=== PATIENT | male | born 1990 | race Caucasian/White ===

== ENCOUNTER 2017-04-01 05:25 | Emergency (ER) | payer OTHER ==
[2017-04-01] MEDS ORDERED: LORazepam 2 MG/ML INJ IVP ONE (05:32)
[2017-04-01] MEDS ORDERED: LORazepam 2 MG/ML INJ ONE (05:33)
[2017-04-01 05:42] VITALS: TEMP 99.5; O2SAT 96
[2017-04-01] MEDS ORDERED: NS 1,000 ML IV ONE (05:42)
[2017-04-01] MEDS ORDERED: CHLORDIAZEPOXIDE 25MG PREPK#6 BTL TAKEHOME ONE ×2 (05:43→07:55)
--- NOTE | 2017-04-01 05:43 | EDPHY ---
H & P Time Seen by Provider: 04/01/17 05:36 HPI/ROS: Chief Complaint: Alcohol withdrawal HPI: 26-year-old male [facility] with symptoms of alcohol withdrawal. Patient states that he has been on a Lucia lately, drinking at least a 5th of whiskey a day. Last drink was about an hour and half ago. He has never had an alcohol withdrawal seizure or symptoms like this in the past. No fevers or chills. No abdominal pain. Has vomited once. Has not had any falls. Did not his head. No headache. Has been awake alert and cooperative per EMS. ROS: 10 point Review of Systems is negative except as noted in the HPI. PMH: None Medications: None Allergies: No known drug allergies Social History: Occasional smoking, heavy alcohol, occasional marijuana Family History: non-contributory Physical Exam: Gen: Awake, Alert, tremulous HEENT: Nose: no rhinorrhea Eyes: PERRLA, EOMI Mouth: Moist mucosa Neck: Supple, no JVD Chest: nontender, lungs clear to auscultation Heart: S1, S2 normal, no murmur Abd: Soft, non-tender, no guarding Back: no CVA tenderness, no midline tenderness Ext: no edema, non-tender Skin: no rash Neuro: CN II-XII intact, Sensation grossly intact, Strength 5/5 in bilateral upper and lower extremities Constitutional: Initial Vital Signs Temperature (C) 37.5 C 04/01/17 05:40 Heart Rate 93 04/01/17 05:40 Respiratory Rate 20 04/01/17 05:40 Blood Pressure 173/103 H 04/01/17 05:40 O2 Sat (%) 96 04/01/17 05:40 O2 Delivery Mode Room Air Allergies/Adverse Reactions: No Known Allergies Allergy (Unverified 04/01/17 05:41) Home Medications: Medication Instructions Recorded NK [No Known Home Meds] 04/01/17 Medical Decision Making ED Course/Re-evaluation: Patient is improved after Ativan. He is resting comfortably. He is not tachycardic. He is not tremulous. He is medically cleared for the [facility]. - Data Points Medications Given: Discontinued Medications Sodium Chloride (Ns) 1,000 mls @ 0 mls/hr IV ONCE ONE PRN Reason: Wide Open Stop: 04/01/17 05:43 Last Admin: 04/01/17 05:46 Dose: 1,000 mls Lorazepam (Ativan Injection) 2 mg IVP EDNOW ONE Stop: 04/01/17 05:33 Last Admin: 04/01/17 05:35 Dose: 2 mg Departure - Departure Disposition: Home, Routine, Self-Care Clinical Impression: Alcohol withdrawal Condition: Good Instructions: Chlordiazepoxide (By mouth), Alcohol Withdrawal (ED) Additional Instructions: Please continue to seek help to decrease your alcohol consumption. Return to the emergency depart for increasing tremors, seizure, uncontrolled nausea vomiting, or any other concerns. Referrals: Fredy Ramon MD [Medical Doctor] - As per Instructions
[2017-04-01] MEDS ORDERED: IBUPROFEN 600 MG TAB PO ONE (07:52)
[2017-04-01 08:01] VITALS: BP 144/98; PULSE 97; RESP 18
[2017-04-01] MEDS ORDERED: LORazepam 1 MG TAB PO ONE (08:08)
== END 2017-04-01 08:57 | disposition home or self-care (01) ==
DX: F10.239 Alcohol dependence with withdrawal, unspecified (principal); F17.200 Nicotine dependence, unspecified, uncomplicated; R11.10 Vomiting, unspecified
CPT/HCPCS: 96374; J2060

== ENCOUNTER 2017-04-21 12:53 | Inpatient (IN) | payer OTHER ==
--- NOTE | 2017-04-21 13:16 | EDPHY ---
H & P Time Seen by Provider: 04/21/17 12:54 HPI/ROS: Chief complaint. Manic HPI. 26-year-old male here by EMS after being found to be behaving erratically. The patient tells me he was in the park and having a tongue tug of war Mario with his brother. He looked down and saw small [employer] men walking in the grass and they were testing a plant that was also found in the park and it was found to be the lethal type of poison oak. He felt he needed medical attention so asked a family member to drive him to the [facility]. The family member already had a stalk growing out of his chest. Patient arrived at the [facility] and because of the above story and a retic behavior EMS was called. He was transported to [facility] by EMS. Patient denies drugs alcohol. He denies injury. He denies illness. He denies difficulty breathing, chest discomfort abdominal pain. There is apparently no history of mental health problems for this patient ROS Constitutional. no fever/chills, no weakness Eyes. no problems with vision ENT. no sore throat, no nasal drainage Cardiovascular. no chest pain Respiratory. no shortness of breath, no cough Abdominal. no abdominal pain, no nausea/vomiting, no diarrhea . no problems urinating MS. no calf pain/swelling, no neck/back pain, no joint pain Skin. no rash Lymph. no swollen glands Neuro. no headache, no dizziness, no difficulty walking or with speech. Erratically behavior Past Medical/Surgical History: Past medical history alcoholism. Apparently no mental health issues Social History: Single, daily smoker, no recent alcohol or drugs Smoking Status: Current some day smoker Physical Exam: General Appearance: Alert well-developed male mild distress. Vital signs stable Eyes: Pupils equal and round no pallor or injection. ENT, Mouth: Mucous membranes are moist. Respiratory: There are no retractions, lungs are clear to auscultation. Cardiovascular: Regular rate and rhythm. Gastrointestinal: Abdomen is soft and nontender, no masses, bowel sounds normal. Neurological: Awake and alert, sensory and motor exams grossly normal. Skin: Warm and dry, no rashes. Musculoskeletal: Neck is supple nontender. Extremities symmetrical, full range of motion. Psychiatric: Patient is oriented X 3, there is no agitation. Constitutional: Initial Vital Signs Temperature (C) 36.9 C 04/21/17 12:53 Heart Rate 92 04/21/17 12:53 Respiratory Rate 16 04/21/17 12:53 Blood Pressure 150/99 H 04/21/17 12:53 O2 Sat (%) 97 04/21/17 12:53 O2 Delivery Mode Room Air Allergies/Adverse Reactions: No Known Allergies Allergy (Verified 04/21/17 13:46) Home Medications: Medication Instructions Recorded NK [No Known Home Meds] 04/01/17 Medical Decision Making Procedures: Patient is placed on a detained ED Course/Re-evaluation: Patient is given Ativan orally for agitation 5:10 p.m. the patient has been evaluated by mental health. They obtained a history of dextromethorphan use. They request that the patient be admitted medically as they feel that this is a delirium presentation or substance abuse as opposed to mental health issue Patient remained stable I consulted and discussed case with Dr. Lei, hospitalist, who agrees to the admission Differential Diagnosis: I considered schizophrenia and bipolar as initial presentation, substance ingestion or withdrawal. Patient's symptoms are waxing and waning that would be consistent with delirium and likely ingestion - Data Points Laboratory Results: Laboratory Results 04/21/17 13:28 04/21/17 13:28 04/21/17 04/21/17 04/21/17 13:28 13:28 13:10 WBC 10.90 10^3/uL H 10^3/uL (3.80-9.50) RBC 4.48 10^6/uL 10^6/uL (4.40-6.38) Hgb 14.5 g/dL g/dL (13.7-17.5) Hct 42.5 % % (40.0-51.0) MCV 94.9 fL fL (81.5-99.8) MCH 32.4 pg pg (27.9-34.1) MCHC 34.1 g/dL g/dL (32.4-36.7) RDW 12.5 % % (11.5-15.2) Plt Count 105 10^3/uL L 10^3/uL (150-400) MPV 11.3 fL fL (8.7-11.7) Neut % (Auto) 77.9 % H % (39.3-74.2) Lymph % (Auto) 7.5 % L % (15.0-45.0) Maries % (Auto) 13.5 % H % (4.5-13.0) Eos % (Auto) 0.1 % L % (0.6-7.6) Baso % (Auto) 0.4 % % (0.3-1.7) Nucleat RBC Rel Count 0.0 % % (0.0-0.2) Absolute Neuts (auto) 8.50 10^3/uL H 10^3/uL (1.70-6.50) Absolute Lymphs (auto) 0.82 10^3/uL L 10^3/uL (1.00-3.00) Absolute Monos (auto) 1.47 10^3/uL H 10^3/uL (0.30-0.80) Absolute Eos (auto) 0.01 10^3/uL L 10^3/uL (0.03-0.40) Absolute Basos (auto) 0.04 10^3/uL 10^3/uL (0.02-0.10) Absolute Nucleated RBC 0.00 10^3/uL 10^3/uL (0-0.01) Immature Gran % 0.6 % % (0.0-1.1) Immature Gran # 0.06 10^3/uL 10^3/uL (0.00-0.10) Sodium 136 mEq/L mEq/L (134-144) Potassium 3.5 mEq/L mEq/L (3.5-5.2) Chloride 93 mEq/L L mEq/L (97-110) Carbon Dioxide 16 mEq/l L mEq/l (22-31) Anion Gap 27 mEq/L H mEq/L (8-16) BUN 15 mg/dL mg/dL (7-23) Creatinine 0.6 mg/dL L mg/dL (0.7-1.3) Estimated GFR > 60 Glucose 53 mg/dL L mg/dL (70-100) Calcium 10.2 mg/dL mg/dL (8.5-10.4) Urine Opiates Screen NEGATIVE (NEGATIVE) Acetaminophen < 10 mcg/mL L mcg/mL (10.0-30.0) Urine Barbiturates NEGATIVE (NEGATIVE) Ur Phencyclidine Scrn NEGATIVE (NEGATIVE) Ur Amphetamine Screen NEGATIVE (NEGATIVE) U Benzodiazepines Scrn NON-NEGATIVE H (NEGATIVE) Urine Cocaine Screen NEGATIVE (NEGATIVE) U Marijuana (THC) Screen NON-NEGATIVE H (NEGATIVE) Ethyl Alcohol < 10 mg/dL mg/dL (0-10) Medications Given: Discontinued Medications Lorazepam (Ativan) 1 mg PO EDNOW ONE Stop: 04/21/17 16:17 Last Admin: 04/21/17 16:19 Dose: 1 mg Departure - Departure Disposition: [facility] Clinical Impression: Delirium Condition: Fair
[2017-04-21 14:06] LABS: % IMMATURE GRANULYOCYTES 0.6 % (0.0-1.1); ABSOLUTE IMMATURE GRANULOCYTES 0.06 10^3/uL (0.00-0.10); ADD DIFF? NO; ADD MORPH? NO; ADD SCAN? NO; ATYPICAL LYMPHOCYTE FLAG 20 (0-99); FRAGMENT RBC FLAG 0 (0-99); HEMATOCRIT 42.5 % (40.0-51.0); HEMOGLOBIN 14.5 g/dL (13.7-17.5); LEFT SHIFT FLG 0 (0-99); LIPEMIA HEMOLYSIS FLAG 90 (0-99); MEAN CELL HEMOGLOBIN 32.4 pg (27.9-34.1); MEAN CELL HEMOGLOBIN CONCENTR. 34.1 g/dL (32.4-36.7); MEAN CELL VOLUME 94.9 fL (81.5-99.8); MEAN PLATELET VOLUME 11.3 fL (8.7-11.7); PLATELET CLUMPS FLAG 0 (0-99); PLATELET COUNT 105 10^3/uL (150-400); RED BLOOD CELL COUNT 4.48 10^6/uL (4.40-6.38); RED CELL DISTRIBUTION WIDTH 12.5 % (11.5-15.2)
[2017-04-21 14:20] LABS: ANION GAP 27 mEq/L (8-16); CALCIUM 10.2 mg/dL (8.5-10.4); CARBON DIOXIDE 16 mEq/l (22-31); CHLORIDE 93 mEq/L (97-110); CREATININE 0.6 mg/dL (0.7-1.3); ETHANOL SERUM < 10 mg/dL (0-10); GLOMERULAR FILTRATION RATE > 60; GLUCOSE 53 mg/dL (70-100); POTASSIUM 3.5 mEq/L (3.5-5.2); SODIUM 136 mEq/L (134-144)
[2017-04-21] MEDS ORDERED: LORazepam 1 MG TAB PO ONE ×2 (16:16→19:40)
[2017-04-21] MEDS ORDERED: LORazepam 1 MG TAB ONE (19:38)
[2017-04-21] MEDS ORDERED: ONDANSETRON 4 MG/2 ML VIAL IVP PRN (20:04)
[2017-04-21] MEDS ORDERED: ZOLPIDEM TARTRATE 5 MG TAB PO PRN (20:04)
[2017-04-21] MEDS ORDERED: ACETAMINOPHEN 325 MG TAB PO PRN (20:04)
[2017-04-21] MEDS ORDERED: NS 1,000 ML IV SCH (20:15)
--- NOTE | 2017-04-21 20:15 | PDGENHP ---
History and Physical History and Physical: HISTORY: This patient is brought into the ER with confusion and delusional thoughts odd behaviors. The patient tells me in the ER staff that today he was at a park here [place] when he and some relatives and other people in countered a poisonous [place] plans of some type which was causing people to be very sick and some to . He says to of his relatives and several other people . When I ask what kind of contact they had with the plan he said just brushing against at although he describes to me later that he was immersed in the plant. He he says he later came out of that immersion and things felt sort of foggy and strange any feels like he maybe got a scratch or 2 but otherwise he does not feel like he is in danger add by the planned but is worried about what might happen. He says that many people were scrambling to get to the hospital after this. When I asked him how things were going prior to today he says that he has had some strange things happening for a few days before today. He says yesterday he was saying and doing some strange things that did not make any sense but is unable to elaborate more than that right now. When I asked him if he has any pain nausea headache fever symptoms breathing trouble urinary symptoms GI symptoms or otherwise he responds in the negative. He states he has never had any mental health issues in the past. No head injuries or other traumas no seizure disorder. He says that he has a tremor that he thinks is premature Parkinson's disease. He does not take any prescribed medicines. He does admit to drinking moderately heavily although his story wavers a bit on what he drinks. It also sounds like he has not had anything to drink for perhaps a few days but is very difficult to clarify that. He admits to smoking cigarettes and daily marijuana. He has had past use of numerous street drugs but none recently. He does admit to prior use of LSD, mushrooms, ecstasy, and has had occasional use of cocaine and used heroin 3 times. Review of our records here so he [facility] our [facility] ROS: A comprehensive 10 system review revealed no other significant findings PAST MEDICAL HISTORY: States he has tremor but no other medical history FAMILY MEDICAL HISTORY: Denies any family history of seizures, mental health disorder, or other serious medical problems SOCIAL HISTORY: Says he lives here in [place] and works as a cook at a restaurant Substance abuse as above MEDICATIONS: He denies medications and apparently his daughter pharmacist the same PHYSICAL EXAMINATION: Vital Signs: Mildly hypertensive otherwise normal without fever Examination: General/Neurologic: As I enter the room the patient is lying on a blanket on the floor with a pillow. He is alert, oriented to person place day date and year; he is relaxed and attentive, normally conversant, calm. He has some very bizarre delusions about what happened today some of which are described above. He does not have pressured speech and is not tangential and does not have flight of ideas. I do not see a resting tremor. Intermittently I see what looks like possibly an intention tremor but when I specifically asked him to hold his hands out I do not see this tremor. There are no muscle fasciculations. There are no other abnormal movement findings. Slightly abnormal balance but no other cerebellar or coordination findings, normal paper machine tender, no focal weakness. Pupils are round equal and reactive. Skin: warm, dry, good color, no rash HEENT: He has scleral redness which looks noninflammatory, otherwise HEENT is normal; of note there is no sign of tongue biting Neck: no mass or jvd Resps: relaxed Lungs: clear breath sounds Heart: regular, no murmur Abdomen: soft, nondistended, nontender, +BS, no mass Upper Extremities: normal Lower Extremities: no edema, warm No Bleeding or bruising IV site: looks normal LABORATORY DATA: Chemistry shows evidence of a metabolic acidosis with assist CO2 of 16 and anion gap 27 His glucose is slightly low at 53 Renal function is good Slightly high white blood cell count Urine drug screen positive for marijuana and benzodiazepine ASSESSMENT: # acute psychosis today and probably present for at least 2-3 days before this but timing hard to clarify; this could be and acute delirium or it may be an acutely triggered manifestation of underlying mental health illness; see discussion below # metabolic acidosis of uncertain etiology but raises a question of possible seizure # I suspect he could possibly be having alcohol withdrawal which would be supported by the fact that he was just here to half weeks ago with some alcohol withdrawal; he does not have the expected tremor and agitation but he has benzodiazepines on board as he arrives and I am seeing him after 3 doses of benzodiazepine given in the ER which could high these changes; if he withdrawing this would be a cause of possible seizure # hypoglycemia of uncertain cause and significance but this could potentially contribute to seizure as well # marijuana abuse # past history of polysubstance abuse with his current history stating that he has had nothing but marijuana recently PLANS: -admission ICU -[facility] protocol -scheduled benzodiazepine -thiamin replacement -seizure precautions -recheck labs now to see what is happening with his acidosis electrolytes and glucose I have reviewed the patient's case in detail with Dr. Justin Capps I have reviewed the patient's past medical records as part of this assessment, including
[2017-04-21] MEDS ORDERED: LORazepam 1 MG TAB PO PRN (20:36)
[2017-04-21] MEDS ORDERED: chlordiazePOXIDE 25 MG CAP PO PRN (20:38)
[2017-04-21 21:02] LABS: ANION GAP 15 mEq/L (8-16); CALCIUM 9.6 mg/dL (8.5-10.4); CARBON DIOXIDE 25 mEq/l (22-31); CHLORIDE 90 mEq/L (97-110); CREATININE 0.6 mg/dL (0.7-1.3); GLOMERULAR FILTRATION RATE > 60; GLUCOSE 69 mg/dL (70-100); SALICYLATE < 1.0 mg/dL (2.0-20.0); SODIUM 130 mEq/L (134-144)
[2017-04-21 21:03] LABS: POTASSIUM 2.7 mEq/L (3.5-5.2)
[2017-04-21] MEDS ORDERED: PROTOCOL MAGNESIUM 1 DOSE IV PRN (22:11)
[2017-04-21] MEDS ORDERED: PROTOCOL POTASSIUM 1 DOSE MISC PRN ×2 (22:11→22:36)
[2017-04-21] MEDS: FAMOTIDINE 20 MG TAB PO SCH (22:15)
[2017-04-21] MEDS ORDERED: POTASSIUM CL 20 MEQ TAB PO ONE (22:37)
[2017-04-21] MEDS: LORazepam 2 MG/ML INJ IVP PRN (23:04)
[2017-04-21] MEDS ORDERED: MAGNESIUM SULF 2 GM/WATER 50 ML IV ONE (23:34)
[2017-04-22 02:52] LABS: POTASSIUM 2.4 mEq/L (3.5-5.2)
[2017-04-22] MEDS: LORazepam 2 MG/ML INJ IVP PRN (03:06)
[2017-04-22] MEDS: POTASSIUM Cl (KCl) 100 ML IV SCH ×4 (03:44→07:27)
[2017-04-22 09:23] LABS: % IMMATURE GRANULYOCYTES 0.4 % (0.0-1.1); ABSOLUTE IMMATURE GRANULOCYTES 0.02 10^3/uL (0.00-0.10); ADD DIFF? NO; ADD MORPH? NO; ADD SCAN? NO; ATYPICAL LYMPHOCYTE FLAG 50 (0-99); FRAGMENT RBC FLAG 0 (0-99); HEMATOCRIT 35.8 % (40.0-51.0); HEMOGLOBIN 12.2 g/dL (13.7-17.5); LEFT SHIFT FLG 0 (0-99); LIPEMIA HEMOLYSIS FLAG 90 (0-99); MEAN CELL HEMOGLOBIN CONCENTR. 34.1 g/dL (32.4-36.7); MEAN PLATELET VOLUME 10.8 fL (8.7-11.7); PLATELET CLUMPS FLAG 20 (0-99); PLATELET COUNT 101 10^3/uL (150-400); RED BLOOD CELL COUNT 3.81 10^6/uL (4.40-6.38); RED CELL DISTRIBUTION WIDTH 12.2 % (11.5-15.2)
[2017-04-22 09:43] LABS: ANION GAP 12 mEq/L (8-16); CALCIUM 8.2 mg/dL (8.5-10.4); CARBON DIOXIDE 24 mEq/l (22-31); CHLORIDE 98 mEq/L (97-110); CREATININE 0.5 mg/dL (0.7-1.3); GLOMERULAR FILTRATION RATE > 60; GLUCOSE 77 mg/dL (70-100); MAGNESIUM 1.5 mg/dL (1.6-2.3); POTASSIUM 3.1 mEq/L (3.5-5.2); SODIUM 134 mEq/L (134-144)
[2017-04-22] MEDS ORDERED: POTASSIUM CL 10 MEQ TAB PO ONE ×2 (10:04→15:25)
[2017-04-22] MEDS ORDERED: MAGNESIUM SULF 1 GM/DEXTROSE 100 ML IV ONE (10:05)
[2017-04-22] MEDS: FAMOTIDINE 20 MG TAB PO SCH ×2 (10:40→20:28)
[2017-04-22] MEDS: MULTIVITAMINS 1 EACH TAB PO SCH (10:40)
[2017-04-22] MEDS: THIAMINE HCL 100 MG TAB PO SCH (10:40)
--- NOTE | 2017-04-22 12:37 | HOSPPROG ---
Hospitalist Progress Note Assessment/Plan: 26 y/o male new to my care 04/22 presenting with # acute psychosis (resolved) possibly secondary to below vs new psychiatric symptom -tlc eval ordered #suspected etoh withdrawal #hypokalemia/hypomagnesemia -replace per protocol # metabolic acidosis of uncertain etiology but raises a question of possible seizure #possible withdrawal sz in light of metabolic acidosis and hypogly on admission pt is certainly at risk given withdrawal and electrolyte abnormalities # marijuana abuse/alcohol abuse -check lfts and recommended cessation # past history of polysubstance abuse with his current history stating that he has had nothing but marijuana recently dispo: cont ciwa transfer to med/surg Subjective: no new complaints. no longer delusional. denies hallucinations Objective: Vital Signs Temp Pulse Resp BP Pulse Ox 37.3 C 89 16 113/60 99 04/21/17 21:46 04/22/17 12:00 04/22/17 12:00 04/22/17 12:00 04/22/17 12:00 Laboratory Results 04/22/17 09:18 04/22/17 09:18 04/21/17 04/22/17 04/23/17 05:59 05:59 05:59 Intake Total 890 Balance 890 - Physical Exam Constitutional: no apparent distress, appears nourished, not in pain Ears, Nose, Mouth, Throat: moist mucous membranes, hearing normal, ears appear normal, no oral mucosal ulcers Cardiovascular: regular rate and rhythym, no murmur, rub, or gallop Respiratory: no respiratory distress, no rales or rhonchi, clear to auscultation Skin: other (abrasions on plantar feet) Neurologic: AAOx3, sensation intact bilaterally, other (mild tremor) ICD10 Worksheet Patient Problems: Problems Problem Status Onset Delirium Acute
--- NOTE | 2017-04-22 15:02 | GCON ---
[f rep st] CONSULTATION PULMONARY/CRITICAL CARE CONSULTATION DATE OF CONSULTATION: 04/22/2017 REFERRING PHYSICIAN: Anderson Toscano DO REASON FOR REFERRAL: Evaluation and management of delirium/psychosis and hypokalemia. HISTORY: The patient is a 26-year-old male with no prior history of mental health illness, but with a history of polysubstance abuse, who apparently tried to stop drinking a few weeks ago. He was ab le to finally completely stop 1 week ago. He was brought into the emergency department last night w ith delusions of being poisoned, Army men in the ground, and a foggy and strange feeling. He was ad mitted via the emergency department for these delusions/hallucinations, as well as hypokalemia. He reports today that he is feeling clear and is currently oriented. He remembers seeing things that w ere not present over the last few days. PAST MEDICAL HISTORY: Tremor. MEDICATIONS: None. ALLERGIES: None. 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 He has had prior use of LSD, mushrooms, ecstasy, as well as cocaine and heroin. Most recentl y, he has been primarily using alcohol, marijuana and cigarettes. FAMILY HISTORY: Unremarkable. REVIEW OF SYSTEMS: A complete 10-point review of systems adds nothing to the History of Present Ill ness. PHYSICAL EXAMINATION: GENERAL: The patient is awake, alert, and in no acute distress. Blood press ure is 113/60, with a heart rate of 89. He is afebrile. Oxygen saturations are 99% on room air. H EENT: Normocephalic and atraumatic. No icterus. NECK: No JVD. Trachea is midline. CHEST: Yanna r to auscultation. CARDIAC: Regular rate and rhythm, without murmur. ABDOMEN: Soft, nontender. B owel sounds are present. EXTREMITIES: No clubbing, cyanosis, or edema. NEURO: The patient is jude ke and oriented x3. He has a mild intention tremor. He has no gross motor or sensory deficits. Hi s thought content is normal, with no pressured speech. LABORATORY DATA: Hemoglobin is 12.2. White blood count is 5.4. A potassium was 2.4 early this mor abdoul and is now up to 3.1. Magnesium is 1.5, up from 1.1. Glucose is 114, up from 64. Toxicology is negative for alcohol and is non-negative for benzodiazepines and marijuana. ASSESSMENT: 1. Acute delirium/psychosis. The patient has had delusions. This could be alcohol withdrawal, but also could be a new schizoaffective disorder. The fact that he seems to have cleared somewhat in t he last 24 hours argues more for the latter. 2. Hypokalemia. This could be due to poor p.o. intake as he has apparently been having delusions f or several days. He has no other electrolyte abnormalities, besides hypomagnesemia. He has been co rrecting with IV replacement. RECOMMENDATIONS: 1. Continue IV replacement of potassium and magnesium. 2. Continue Librium and Ativan as needed p.r.n. symptoms of withdrawal/delusions. 3. Once the patient is improved/cleared, psychiatry consult to help confirm the diagnosis, as well as help arrange for outpatient treatment. /[id number]/MODL
[2017-04-22 15:08] LABS: ALANINE AMINOTRANSFERASE 124 IU/L (21-72); ALBUMIN 3.6 g/dL (3.5-5.0); ALKALINE PHOSPHATASE 74 IU/L (38-126); ASPARTATE AMINOTRANSFERASE 212 IU/L (17-59); BILIRUBIN,TOTAL 1.9 mg/dL (0.1-1.4); BILIRUBIN-CONJUGATED 0.4 mg/dL (0.0-0.5); BILIRUBIN-UNCONJUGATED 1.5 mg/dL (0.0-1.1); POTASSIUM 3.8 mEq/L (3.5-5.2); TOTAL PROTEIN 6.6 g/dL (6.3-8.2)
[2017-04-22 20:52] LABS: POTASSIUM 3.5 mEq/L (3.5-5.2)
[2017-04-22] MEDS ORDERED: POTASSIUM CL 20 MEQ TAB PO ONE (21:08)
[2017-04-23 06:18] LABS: MAGNESIUM 1.6 mg/dL (1.6-2.3); POTASSIUM 3.5 mEq/L (3.5-5.2)
[2017-04-23] MEDS ORDERED: POTASSIUM CL 10 MEQ TAB PO ONE (09:18)
[2017-04-23] MEDS ORDERED: MAGNESIUM SULF 1 GM/DEXTROSE 100 ML IV ONE (09:35)
[2017-04-23] MEDS: FAMOTIDINE 20 MG TAB PO SCH ×2 (09:44→20:21)
[2017-04-23] MEDS: THIAMINE HCL 100 MG TAB PO SCH (09:44)
[2017-04-23] MEDS: MULTIVITAMINS 1 EACH TAB PO SCH (09:44)
--- NOTE | 2017-04-23 10:01 | WOCRNPDOC ---
WOCRN Advanced Assessment Note - Skin Integrity Problem, Advanced Assess Right Pedal Foot Abrasion Dressing Type: Open to Air Susan Wound Tissue: Calloused Wound Bed Constitution: Dried Exudate Site Measurement - Head-to-Toe Length X Width X Depth (cm): 1x1.5x0.3 Skin Integrity Problem Comment: Abrasion/tear over 1st metatarsal head. Mostly partial thickness but may have some full thickness tissue loss at base. Difficult to assess with dried drainage. No sign of infection nor susan wound erythema. RN to clean and coverd with wound gel and allevyn life dressing. Wound care will sign off. Hui NGUYEN in room for care. Please reconsult prn.
--- NOTE | 2017-04-23 16:18 | HOSPPROG ---
Hospitalist Progress Note Assessment/Plan: DIAGNOSES: # acute psychosis Is most likely due to acute alcohol withdrawal and delirium tremens # metabolic acidosis of uncertain etiology but raises a question of possible seizure which would be an alcohol withdrawal seizure # I suspect he could possibly be having alcohol withdrawal which would be supported by the fact that he was just here to half weeks ago with some alcohol withdrawal; the patient is now able to fill in the details of history and admits that he had been drinking quite heavily until several days before this admission # hypoglycemia of uncertain cause and significance but this could potentially contribute to seizure as well # marijuana abuse # past history of polysubstance abuse with his current history stating that he has had nothing but marijuana recently PLANS: -at this time he is still receiving some benzodiazepine but is not at all agitated or delirious and in fact really has a normal neurologic exam other than a mild tremor -I spent approximately 45 minutes with the patient and his mother reviewing his alcohol use, his presenting symptoms and findings, likely course of symptoms over the next day or 2, and my strong recommendations regarding his need for ongoing rehabilitation, support from friends and family, lifestyle changes, and other measures for his substance abuse. Overall he is very positive about trying to stay sober although he does not want to stop using his small amount of marijuana. I did review with him and his mother the risks that this poses for him particularly in relation to higher risk of going back to alcohol or other drugs. SUBJECTIVE: Feels much better today, no longer confused He recalls his delusional thoughts and hallucinations in some significant detail and finds them very strange He does admit he had started drinking again after his presentation here in March and was drinking very heavily prior to onset of this episode when he had stopped drinking several days before coming in OBJECTIVE Vitals reviewed: stable without fever Exam: alert oriented relaxed, with normal mental exam normal motor exam, has a very mild tremor with intention of his hands skin warm dry color ok resps not labored lungs clear BSs heart regular abd soft nondistended nontender, bowel sounds present limbs warm, no edema iv site ok l Objective: Vital Signs Temp Pulse Resp BP Pulse Ox 36.6 C 84 20 129/90 H 100 04/23/17 12:04 04/23/17 12:04 04/23/17 12:04 04/23/17 12:04 04/23/17 12:04 Laboratory Results 04/22/17 09:18 04/23/17 05:51 04/22/17 04/23/17 04/24/17 06:59 06:59 06:59 Intake Total 890 4375 Balance 890 4375 - Time Spent With Patient Time Spent with Patient: greater than 35 minutes Time Spent with Patient: Greater than 35 minutes spent on this patients care, greater than 50% of time spent counseling, educating, and coordinating care regarding the above mentioned plan. ICD10 Worksheet Patient Problems: Problems Problem Status Onset Delirium Acute
[2017-04-24 00:10] VITALS: RESP 16; O2SAT 98
[2017-04-24] MEDS: FAMOTIDINE 20 MG TAB PO SCH (08:33)
[2017-04-24] MEDS: THIAMINE HCL 100 MG TAB PO SCH (08:33)
[2017-04-24] MEDS: MULTIVITAMINS 1 EACH TAB PO SCH (08:34)
[2017-04-24 11:43] VITALS: BP 125/82; PULSE 66; TEMP 98.4
--- NOTE | 2017-04-24 17:39 | PDDCSUM ---
Discharge Summary Discharge Summary: DISCHARGE DIAGNOSES: # acute psychosis Is most likely due to acute alcohol withdrawal and delirium tremens # metabolic acidosis of uncertain etiology but raises a question of possible seizure which would be an alcohol withdrawal seizure # I suspect he could possibly be having alcohol withdrawal which would be supported by the fact that he was just here to half weeks ago with some alcohol withdrawal; the patient is now able to fill in the details of history and admits that he had been drinking quite heavily until several days before this admission # hypoglycemia of uncertain cause and significance but this could potentially contribute to seizure as well # marijuana abuse # past history of polysubstance abuse with his current history stating that he has had nothing but marijuana recently CONSULTANTS: Dr. Rubén Julian of [facility] HOSPITAL COURSE SUMMARY: This patient came in to the emergency room on his own with acute psychosis in delirium. In talking to him this is clearly been going on for at least 2-3 days possibly longer and seemed acute in onset with no previous history of the same. It was clear that he has a long-standing alcohol problem and notably looking back in his chart he had been to our ER [facility] with alcohol withdrawal. It appears it started drinking again after this as he did not have admission to the hospital here. At this point it appears clear that he was suffering from acute alcohol withdrawal at the time of his arrival here. He did have delirium tremens. Notably he was taking some benzodiazepine as an outpatient which was visible in his urine and this probably was given to him by the [facility]. So he was having acute delirium tremens with severe delusional thoughts and hallucinations despite the benzodiazepine. There is no sign of other acute complication directly however there were some signs that the patient may have possibly had an alcohol withdrawal seizure sometime before presenting here to the ER. There is no physical injury from that. The patient was admitted to the intensive care unit where he required Precedex drip for approximately 2 days. This was then discontinued and he had low-dose of benzodiazepine a is a pain after that. At this point he is completely recovered and is back to normal mentation with only at the very tiny is bit of tremor left and no other signs of withdrawal. The patient clearly understands what happened and is very much wanting to proceed with doing anything he can stop drinking. Notably he has used a lot of other drugs in the past although a slide from his 1st small amount of marijuana has not been using any drugs recently. He is also very set on trying to stay away from all of these drugs. His mother has been here at the bedside with him he has got a lot of support from her and other family as well as some friends. His roommate has taken alcohol out of the house that they live in. The patient does have there plate still live, and has a job with could not pay and has insurance. He is planning to enroll in a rehabilitation program and our heel caser have given him a list of resources in the community for this. He also will seek out a long-term counselor. We talked about the possible need for antidepressant we talked about use of exercise, diet changes, and other types of therapy and hobbies and activities to help. Other lifestyle changes may be necessary and he is looking forward trying all of these. He does not have a primary care physician so we have given him a list of the local primary care physicians to get hooked up with. MEDICATION CHANGES: He has a 4 day taper of Librium scheduled starting today at 10 mg three times daily. FOLLOW-UP PLAN: With rehabilitation and primary care providers that he will schedule with his mother's help and has been given list prior case fitter Greater than 35 minutes bedside and care coordination time today
== END 2017-04-24 15:28 | disposition home or self-care (01) | DRG 897 ==
LOC: EDUNIT# → F2N 21:20 → F3E 04-23 17:25
PROVIDERS: ADMIT Internal Medicine; ATTEND Internal Medicine
DX: F10.231 Alcohol dependence with withdrawal delirium (principal); E87.2 Acidosis; E87.6 Hypokalemia; E83.42 Hypomagnesemia; E16.2 Hypoglycemia, unspecified; F12.10 Cannabis abuse, uncomplicated; F17.210 Nicotine dependence, cigarettes, uncomplicated
CPT/HCPCS: 80305; G0480; J2060; J3475

== ENCOUNTER 2017-05-23 15:18 | Emergency (ER) | payer OTHER ==
[2017-05-23 15:24] VITALS: RESP 18; TEMP 98.2; O2SAT 94
--- NOTE | 2017-05-23 15:46 | EDPHY ---
H & P Stated Complaint: etoh Time Seen by Provider: 05/23/17 15:19 HPI/ROS: CHIEF COMPLAINT: "I'm really drunk" HISTORY OF PRESENT ILLNESS: 27-year-old male arrives by ambulance. Patient has a history of alcoholism. The patient was supposed to go on a family vacation to her why however when the patient did not show up they called him repeatedly and he did not respond. Subsequently the mother flew to [place], showed up today, after his apartment and found him sleeping on his bed, arousable called 911. He was arousable by EMS, did not require pharmacologic intervention. He admits to heavy alcohol use and marijuana use. He has no complaints of seizure, no hallucination. No reports of psychotic or altered mental status according the mother. Denies suicidal or homicidal ideation PRIMARY CARE PROVIDER: REVIEW OF SYSTEMS: A ten point review of systems was performed and is negative with the exception of the items mentioned in the HPI PAST MEDICAL & SURGICAL HISTORY: history of alcoholism SOCIAL HISTORY:heavy alcohol and marijuana use today PHYSICAL EXAM (Prior to examination, patient consented to physical exam, hands were washed and my usual and customary physical exam procedures followed) 1) GENERAL: dirty, dried food on his clothing, , alert and oriented. Answering questions appropriately. 2) HEAD: Normocephalic, atraumatic 3) HEENT: Pupils equal, round, reactive to light bilaterally. Sclera anicteric. Nasopharynx, oropharynx, clear, no lesions. No signs of trauma Ears bilaterally with normal tympanic membranes. 4) NECK: Full range of motion, no meningeal signs. 5) LUNGS: Clear auscultation bilaterally, no wheezes, no rhonchi, no retractions. 6) HEART: Regular rate and rhythm, no murmur, no heave, no gallop. 7) ABDOMEN: No guarding, no rebound, no focal tenderness, 8) MUSCULOSKELETAL: Moving all extremities, no focal areas of tenderness, no obvious trauma. No peripheral edema or discoloration. 9) BACK: no visual or palpable abnormality. 10) SKIN: No rash, no petechiae. 11) Psychiatric: Patient is oriented X 3, there is no agitation. DIFFERENTIAL DIAGNOSIS: in no particular include but limited to acute alcohol intoxication, delirium tremens, psychosis - Personal History Tetanus Vaccine Date: 2015 - Medical/Surgical History Hx Asthma: No Hx Chronic Respiratory Disease: No Hx Diabetes: No Hx Cardiac Disease: No Hx Renal Disease: No Hx Cirrhosis: No Hx Alcoholism: Yes Hx HIV/AIDS: No Hx Splenectomy or Spleen Trauma: No Other PMH: ETOH abuse - Social History Smoking Status: Current some day smoker Constitutional: Initial Vital Signs Temperature (C) 36.8 C 05/23/17 15:22 Heart Rate 97 05/23/17 15:22 Respiratory Rate 18 05/23/17 15:22 Blood Pressure 130/85 H 05/23/17 15:22 O2 Sat (%) 94 05/23/17 15:22 O2 Delivery Mode Room Air Allergies/Adverse Reactions: No Known Allergies Allergy (Verified 04/21/17 17:50) Home Medications: Medication Instructions Recorded chlordiazePOXIDE [Librium 5 mg (*)] 5 mg PO AD #18 cap 04/24/17 Medical Decision Making ED Course/Re-evaluation: 3:46 p.m.: This patient has prior history of alcoholism, psychosis with admission to [facility] ICU. At this time I think that delirium tremens is unlikely. I suspect he is acutely intoxicated with alcohol. The mother has inquired about getting psychiatric consultation in the emergency department however if he is acutely intoxicated we discussed the challenges of this occurring. The mother has inquired about getting the patient into a detoxification facility however the patient is hesitant to voluntarily go to detoxification facility. 5:30 p.m.: The classification case manager spoke with the patient and family members. We have offered to assist in getting him to a detoxification facility however he declines this stating that he would like to go home. He denies suicidal or homicidal ideation. He has no evidence of delirium tremens. I have offered to send [facility] to [facility] which he declines. He has been given outpatient resources for alcohol detoxification and sobriety. Family will take him home. - Data Points Laboratory Results: 05/23/17 15:25 Ethyl Alcohol 480 mg/dL H* mg/dL (0-10) Departure - Departure Disposition: Home, Routine, Self-Care Clinical Impression: Alcohol intoxication Qualifiers: Complication of substance-induced condition: uncomplicated Qualified Code(s): F10.920 - Alcohol use, unspecified with intoxication, uncomplicated Condition: Good Instructions: Alcohol Intoxication (ED) Additional Instructions: Return to the ER if you develop hallucinations, seizure, or any other symptoms that concern you. Please consider long-term sobriety. Referrals: [facility] [Outside] - 1-2 days without fail
[2017-05-23 16:22] LABS: ETHANOL SERUM 480 mg/dL (0-10)
[2017-05-23 17:34] VITALS: BP 136/84; PULSE 93
== END 2017-05-23 17:34 | disposition home or self-care (01) ==
LOC: EDUNIT#
DX: F10.920 Alcohol use, unspecified with intoxication, uncomplicated (principal); F17.200 Nicotine dependence, unspecified, uncomplicated
CPT/HCPCS: G0480